=== PATIENT | female | born 1980 ===

== ENCOUNTER 2017-06-15 14:19 | Emergency (ER) | payer OTHER ==
[2017-06-15 14:26] VITALS: RESP 18
[2017-06-15] MEDS ORDERED: Sodium Chloride 0.9% 1,000 ML IV ONE (15:30)
--- NOTE | 2017-06-15 15:32 | ED PDOC ---
HPI: Back Chief Complaint (Provider): back pain and fever History Per: Patient Onset/Duration Of Symptoms: Days (3) Current Symptoms Are (Timing): Still Present Quality Of Discomfort: Cramping, Stabbing Pain Scale Rating Of: 7 Previous Symptoms: None Exacerbating Factor(s): Movement Additional Complaint(s): Pt is 36 yo F with no known medical history presenting to the ED with complaints of R sided back pain and fever for 3 days. Pt states she noticed the pain suddenly, it wasn't precipitated by anything she can recall, she wasn't doing any strenuous activity, and had not done any such activity recently at all. Rates pain 05/02, states it radiates to the right side of the abdomen, describes it as cramping/stabbing. Pt has taken 400-500mg ibuprofen every 6 hrs for the past 2 days with relief of pain at home, last dose 1am. Associated sx: nausea, diarrhea. Denies cough, sore throat, chest pain, shortness of breath, vomiting, constipation, burning/pain/issues with urination, blood in urine or stool. <Debi Rodriguez - Last Filed: 06/15/17 17:20> <John Rosales - Last Filed: 06/15/17 18:06> Time Seen by Provider: 06/15/17 14:33 Chief Complaint (Nursing): Back Pain Past Medical History Reviewed: Vital Signs Vital Signs: Last Vital Signs Temp 101.9 F H 06/15/17 14:20 Pulse 106 H 06/15/17 14:20 Resp 18 06/15/17 14:20 BP 109/70 06/15/17 14:20 Pulse Ox 99 06/15/17 14:20 - Medical History PMH: No Chronic Diseases - Surgical History Surgical History: (x3) Other surgeries: lumpectomy [place] [address] [facility]; pt unable to provide more details - Family History Family History: States: No Known Family Hx - Social History Current smoker - smoking cessation education provided: No (never smoker) Alcohol: Occasional (1 drink/mo) Drugs: Denies, Other (denies uses of OTC meds and/or any kinds of supplements) <Debi Rodriguez - Last Filed: 06/15/17 17:20> Vital Signs: Last Vital Signs Temp 101.9 F H 06/15/17 14:20 Pulse 106 H 06/15/17 14:20 Resp 18 06/15/17 14:20 BP 109/70 06/15/17 14:20 Pulse Ox 99 06/15/17 17:21 <John Rosales - Last Filed: 06/15/17 18:06> - Home Medications Home Medications: Ambulatory Orders Medication Instructions Recorded Azithromycin [Zithromax] 250 mg PO DAILY #6 tab 06/15/17 Ibuprofen [Motrin] 600 mg PO Q8 #20 tab 06/15/17 - Allergies Allergies/Adverse Reactions: Allergies Allergy/AdvReac Type Severity Reaction Status Date / Time Unobtainable Allergy Verified 06/15/17 14:33 Review of Systems ROS Statement: Except As Marked, All Systems Reviewed And Found Negative Constitutional: Positive for: Fever, Chills Gastrointestinal: Positive for: Nausea, Abdominal Pain, Diarrhea Musculoskeletal: Positive for: Back Pain <Debi Rodriguez - Last Filed: 06/15/17 17:20> Physical Exam - Reviewed Vital Signs Reviewed: Yes - Physical Exam Head Exam: Positive for: ATRAUMATIC, NORMAL INSPECTION Skin: Positive for: Warm, Dry Eye Exam: Positive for: Normal appearance, EOMI, PERRL ENT: Negative for: Nasal Congestion, Pharyngeal Erythema, Tonsillar Exudate Neck: Positive for: Painless ROM, Supple Cardiovascular/Chest: Positive for: Regular Rate, Rhythm. Negative for: Murmur Respiratory: Positive for: Normal Breath Sounds. Negative for: Respiratory Distress Gastrointestinal/Abdominal: Positive for: Bowel Sounds, Soft Back: Positive for: Other (tenderness to palpation, lower back, R side below flanks). Negative for: L CVA Tenderness, R CVA Tenderness Extremity: Positive for: Normal ROM. Negative for: Pedal Edema, Deformity Neurologic/Psych: Positive for: Alert, Oriented <Debi Rodriguez - Last Filed: 06/15/17 17:20> - Laboratory Results Result Diagrams: 06/15/17 15:58 06/15/17 15:58 - ECG O2 Sat by Pulse Oximetry: 99 - Progress ED Course And Treament: Pt seen, evaluated, examined. Vital signs reviewed: pt is febrile at 101.9 and tachycardic at 106. Initial plan: CBC CMP Blood culture Urine culture UA VBG-shock panel CXR CT abd/pelvis w/o IV or PO contrast IV NS @ 250ml/hr 16:36 WBC 12.4 CXR: Interstitial markings somewhat increased/coarsened; rule out sequela of reactive/inflammatory airway disease or possibly viral illness-developing interstitial infiltrates. No focal consolidation. No pleural effusion. 17:03 UA: + nitrates, 6rbc, 4 wbc <Debi Rodriguez - Last Filed: 06/15/17 17:20> - Laboratory Results Result Diagrams: 06/15/17 15:58 06/15/17 15:58 <John Rosales - Last Filed: 06/15/17 18:06> Disposition <Debi Rodriguez - Last Filed: 06/15/17 17:20> - Patient ED Disposition Is Patient to be Admitted: No Counseled Patient/Family Regarding: Studies Performed, Diagnosis, Need For Followup, Rx Given - Disposition Disposition: Routine/Home Disposition Time: 18:02 <John Rosales - Last Filed: 06/15/17 18:06> - Clinical Impression Clinical Impression: Back pain, Bronchitis - Disposition Referrals: [facility] [Outside] [facility] [Outside] Condition: FAIR Prescriptions: Azithromycin [Zithromax] 250 mg PO DAILY #6 tab Ibuprofen [Motrin] 600 mg PO Q8 #20 tab Instructions: Acute Bronchitis (ED), Back Pain (ED) Forms: Qwiki (Qatari)
[2017-06-15 16:10] LABS: BASO # 0.1 K/uL (0.0-0.2); BASO % 0.6 % (0.0-2.0); EOS % 0.2 % (0.0-4.0); HEMATOCRIT 35.3 % (34.0-47.0); LYMPH # 1.9 K/uL (1.0-4.3); LYMPH % 15.2 % (20.0-40.0); MEAN CELL VOLUME 89.1 fl (81.0-99.0); MEAN CORPUSCULAR HEMOGLOBIN 30.5 pg (27.0-31.0); MEAN CORPUSCULAR HGB CONC 34.2 g/dL (33.0-37.0); MEAN PLATELET VOLUME 8.1 fl (7.2-11.7); MONO # 0.8 K/uL (0.0-0.8); MONO % 6.7 % (0.0-10.0); NEUT # 9.6 K/uL (1.8-7.0); NEUT % 77.3 % (50.0-75.0); NRBC % 0.1 % (0.0-0.0); RED CELL DISTRIBUTION WIDTH 12.8 % (11.5-14.5); WHITE BLOOD COUNT 12.4 K/uL (4.8-10.8)
[2017-06-15 16:23] LABS: ALB/GLOB RATIO 1.3 (1.0-2.1); ALKALINE PHOSPHATASE 87 U/L (38-126); ALT/SGPT 42 U/L (9-52); AST/SGOT 27 U/L (14-36); BILIRUBIN,TOTAL 0.6 mg/dl (0.2-1.3); BLOOD UREA NITROGEN 7 mg/dl (7-17); CALCIUM 9.2 mg/dL (8.4-10.2); CARBON DIOXIDE 24 mmol/L (22-30); CHLORIDE 100 mmol/L (98-107); GFR AFRICAN-AMERICAN > 60; GLUCOSE,RANDOM 92 mg/dL (65-105); POTASSIUM 3.9 MMOL/L (3.6-5.0); SODIUM 136 mmol/l (132-148); TOTAL PROTEIN 7.9 G/DL (6.3-8.2)
--- NOTE | 2017-06-15 16:27 | RAD ---
HISTORY: fever COMPARISON: No prior. TECHNIQUE: Chest PA and lateral FINDINGS: LUNGS: The interstitial markings are somewhat increased and coarsened ; rule out sequela of reactive/inflammatory airway disease or possibly viral illness -developing interstitial infiltrates. No focal consolidation. PLEURA: No significant pleural effusion identified. No pneumothorax apparent. CARDIOVASCULAR: Normal. OSSEOUS STRUCTURES: No significant abnormalities. VISUALIZED UPPER ABDOMEN: Normal. OTHER FINDINGS: None. IMPRESSION: The interstitial markings are somewhat increased and coarsened ; rule out sequela of reactive/inflammatory airway disease or possibly viral illness -developing interstitial infiltrates. No focal consolidation.
[2017-06-15 16:43] LABS: URINE BACTERIA RARE (<OCC); URINE BILIRUBIN NEGATIVE (NEGATIVE); URINE BLOOD SMALL (NEGATIVE); URINE COLOR YELLOW (YELLOW); URINE GLUCOSE (UA) NEG (Normal); URINE KETONE NEGATIVE (NEGATIVE); URINE LEUKOCYTE ESTERASE NEG Leu/uL (Negative); URINE PROTEIN NEGATIVE (NEGATIVE); URINE UROBILINOGEN 0.2-1.0 mg/dL (0.2-1.0); WBC URINE 4 /hpf (0-5)
[2017-06-15 16:59] LABS: RBC URINE 6 /hpf (0-3)
--- NOTE | 2017-06-15 18:03 | CT ---
PROCEDURE: CT scan abdomen pelvis dated 06/15/2017 HISTORY: Back in abdominal pain COMPARISON: None. TECHNIQUE: Contiguous axial images of the abdomen and pelvis. Oral contrast was administered. No IV contrast given. Coronal and Sagittal reformats generated. Radiation dose: Total exam DLP = 275.43 mGy-cm. This CT exam was performed using one or more of the following dose reduction techniques: Automated exposure control, adjustment of the mA and/or kV according to patient size, and/or use of iterative reconstruction technique. FINDINGS: LOWER THORAX: Lung bases are clear. No infiltrate effusion or basilar pneumothorax. Tiny hiatal hernia. The. LIVER: The liver exhibits normal size and attenuation pattern. . No hepatic mass collection or calcification. GALLBLADDER AND BILE DUCTS: Gallbladder is physiologically distended. There may be some layering sludge within the dependent portion of the gallbladder. No obvious intraluminal gallbladder calculi. PANCREAS: The unenhanced pancreas appear grossly unremarkable. SPLEEN: Spleen exhibits normal size and attenuation pattern ADRENALS: No adrenal lesions. KIDNEYS AND URETERS: Kidneys exhibit relatively symmetric size. No evidence of the nephrolithiasis or hydronephrosis. . Very slight infiltration changes in the right perinephric fat ; the possibility of a UTI. BLADDER: Urinary bladder is incompletely distended which may account for slight thick-walled appearance. Possibility of a cystitis should be excluded with urinalysis. REPRODUCTIVE: There is a tiny calcification in the region of the lower uterine body and/or cervix. Cervix is somewhat bulky in appearance. Follow-up director of curriculum consultation is recommended. APPENDIX: What is felt to represent the appendix best seen on axial image number [id number]. No obvious periappendiceal inflammatory changes. BOWEL: Evaluation of the bowel is limited due to the lack of oral contrast material. Visualized loops of small bowel exhibit normal contour and caliber. No evidence of acute mechanical small bowel obstruction. PERITONEUM: Unremarkable. No fluid collection. No free air. Tiny fat containing umbilical hernia. LYMPH NODES: Unremarkable. No enlarged lymph nodes. VASCULATURE: No evidence of abdominal aortic aneurysm. BONES: Osseous structures appear grossly intact. No significant degenerative spondylosis of the lower thoracic or lumbar spine. OTHER FINDINGS: None. IMPRESSION: There is no evidence of nephrolithiasis or hydronephrosis however very slight infiltration changes in the right perinephric fat. Urinary bladder is also incompletely distended which may in part account thick-walled appearance however cystitis UTI/cystitis to be at considered. Questionable tiny calcification lower anterior uterine body or cervix. The cervix is slightly bulky in appearance ; recommend follow-up ARCHITECT MANAGER consultation note this study was discussed with resident Dr. Rodriguez at is slightly distended approximately 5:58 p.m. with written down and read back verification.
[2017-06-15 18:19] VITALS: BP 110/76; PULSE 79; TEMP 98.4; O2SAT 98
== END 2017-06-15 18:29 | disposition home or self-care (01) ==
LOC: H.ER 14:19
DX: J40 Bronchitis, not specified as acute or chronic (principal); M54.9 Dorsalgia, unspecified
CPT/HCPCS: 71020; 74176; 80053; 81003; 81025; 85025; 87040; 87086; 96360; 96361; 99283; J7040